=== PATIENT | male | born 1955 | race Caucasian/White ===

== ENCOUNTER 2016-08-05 05:56 | Day surgery (SDC) | payer BC ==
[2016-08-03 16:56] VITALS: BMI 28.1
[2016-08-05] MEDS ORDERED: SODIUM CHLORIDE 0.9% 1,000 ML IV SCH (06:05)
[2016-08-05 06:14] VITALS: TEMP 97.7
[2016-08-05 06:31] LABS: Basophils # (A) 0.1 k/uL (0-0.2); Basophils % (A) 1 %; CHCM 36.5; Eosinophils # (A) 0.3 k/uL (0-0.7); Eosinophils % (A) 4 %; HDW 2.96; HGB 14.7 gm/dL (13.0-17.5); Luc # (Auto) 0.11; Luc % (Auto) 2; Lymphocytes # (A) 1.6 k/uL (1.0-4.8); Lymphocytes % (A) 22 %; MCH 30.8 pg (25.0-35.0); MCV 87.9 fL (80.0-100.0); Mean Platelet Volume 7.2; Monocytes # (A) 0.5 k/uL (0-1.0); Monocytes % (A) 7 %; Neutrophils # (A) 4.7 k/uL (1.3-7.7); Neutrophils % (A) 65 %; RBC 4.78 m/uL (4.30-5.90); RDW 12.8 % (11.5-15.5); WBC 7.2 k/uL (3.8-10.6); WBC (Perox) 7.57
[2016-08-05 06:46] LABS: Anion Gap 12 mmol/L; Blood Urea Nitrogen 17 mg/dL (9-20); Carbon Dioxide 24 mmol/L (22-30); Chloride 107 mmol/L (98-107); Glucose 98 mg/dL (74-99); Non-African American GFR(MDRD) >60 (>60 ml/min/1.73 sqM); Potassium 4.4 mmol/L (3.5-5.1); Sodium 143 mmol/L (137-145)
[2016-08-05] MEDS ORDERED: SODIUM CHLORIDE 0.9% 500 ML IV ONE (07:11)
[2016-08-05] MEDS ORDERED: PROPOFOL 10 MG/ML 20 ML VIAL IV ONE (07:40)
[2016-08-05] MEDS ORDERED: LIDOCAINE 1% INJ 10MG/ML (20 ML MDV) ONE (07:40)
--- NOTE | 2016-08-05 08:34 | P.PCN ---
Preoperative Diagnosis: Procedure Electrical cardioversion for atrial fibrillation, on flecainide 100 mg twice daily Indication for procedure Persistent atrial fibrillation with RVR despite rate control medications Tachycardia mediated cardiomyopathy Procedure Successful electrical cardioversion, 360 J biphasic shock 12-lead ECG postprocedure Sinus rhythm normal MT narrow QRS normal ST segments Plan Discharge home on anticoagulation and flecainide Follow-up we'll monitor and 2-D echo in 3 weeks Follow-up with Dr. Campbell in 4-5 weeks Disposition: same day
--- NOTE | 2016-08-05 08:59 | LTR ---
August 05, 2016 RE: Mk Hernández Dear Williams: I had the pleasure of seeing Mk Mcclellan at electrophysiology followup. As you know, Mk has persistent atrial fibrillation and tachycardia mediated cardiomyopathy. He underwent successful electrical cardioversion and now is in sinus rhythm. Hopefully, this will result in improvement in his LV function and I will send you a followup note regarding this in about a month. Thank you for entrusting me with the care of your patient. Warm regards. Sincerely, KETURAH WILSON MD
[2016-08-05 10:40] VITALS: BP 120/74; PULSE 65; RESP 20
== END 2016-08-05 10:25 | disposition home or self-care (01) ==
LOC: CATHEP 05:56
PROVIDERS: ATTEND Internal Medicine Clinical Cardiac Electrophysiology
DX: I48.1 Persistent atrial fibrillation (principal); I42.9 Cardiomyopathy, unspecified; R00.0 Tachycardia, unspecified; I10 Essential (primary) hypertension; E78.5 Hyperlipidemia, unspecified; Z79.82 Long term (current) use of aspirin; Z79.899 Other long term (current) drug therapy; Z87.891 Personal history of nicotine dependence
CPT/HCPCS: 93005; 92960; 80048; 85025; J2001; J2704; 99152

== ENCOUNTER 2016-09-27 09:35 | Inpatient (IN) | payer BC ==
[2016-09-27 10:30] LABS: Glucose,Whole Blood 86 mg/dL (75-99)
[2016-09-27 10:40] VITALS: BMI 30.7
[2016-09-27] MEDS ORDERED: MAGNESIUM SULFATE-D5W PMX 1 GM in DEXTROSE/WATER 1 100ML.BAG IVPB ONE (11:00)
[2016-09-27 11:29] LABS: Anion Gap 11 mmol/L; Blood Urea Nitrogen 14 mg/dL (9-20); Calcium 8.8 mg/dL (8.4-10.2); Carbon Dioxide 25 mmol/L (22-30); Chloride 107 mmol/L (98-107); Glucose 90 mg/dL (74-99); Non-African American GFR(MDRD) >60 (>60 ml/min/1.73 sqM); Potassium 4.8 mmol/L (3.5-5.1); Sodium 143 mmol/L (137-145)
[2016-09-27] MEDS: LOSARTAN 50 MG TAB PO SCH (13:07)
[2016-09-27] MEDS: MAGNESIUM OXIDE 400 MG TAB PO SCH (13:07)
[2016-09-27] MEDS: SPIRONOLACTONE 25 MG TAB PO SCH (13:08)
--- NOTE | 2016-09-27 16:06 | P.PN ---
Subjective Principal diagnosis: atrial fibrillation Patient was admitted for evaluation and management of atrial fibrillation. He has sustained atrial fibrillation and failed electrical cardioversion on flecainide rate his heart rates of poorly controlled on beta blockers, Toprol- XL 100 mg by mouth daily At this time he has no chest discomfort or undue shortness of breath No dizziness lightheadedness and he is lying comfortably in bed Review of systems: No fever chills or rigors, no cough, phlegm or expectoration , no nausea, vomiting or diarrhea, no hematuria, dysuria, no musculoskeletal complaints, no strokes or seizures, no skin lesions. On examination His blood pressure is elevated at 144/91 mmHg Heart rates are in the 70s at rest No JVD no thyromegaly No carotid bruits Heart sounds are irregular No murmurs no gallops Breath sounds are normal no rhonchi no crackles Heart sounds are normal normal S1 normal S2, no murmurs Abdomen is soft nontender no masses Extremities are warm no edema Impression persistent atrial fibrillation with RVR despite rate control medications and failed electrical cardioversion on flecainide Intermittent aberrant conduction Mild cardiomyopathy, nonischemic, likely tachycardia mediated, related to atrial fibrillation Symptoms of tiredness and fatigue and shortness of breath on exertion Hypertension Dyslipidemia Twelve-lead ECG at baseline shows atrial fibrillation, rate controlled, absolute QT interval of less than 400 ms Plan Initiate dofetilide at 500 g dose Labs were reviewed TSH 2.4 , magnesium 1.9, creatinine 0.86, potassium 4.8 Creatinine clearance 114 Baseline 12-lead ECG shows absolute QT interval of less than 400 ms. Patient is in atrial fibrillation Continue ELIQUIS 5 mg twice daily Metoprolol succinate 150 mg daily at bedtime And losartan 50 mg by mouth daily and spironolactone 25 mg by mouth daily and oral magnesium Continue statins, atorvastatin 10 mg a day Follow dofetilide initiation protocol as an inpatient Monitor QT interval Monitor electrolytes and renal function Likely cardioversion after 4 doses of dofetilide Objective - Vital Signs Vital signs: Vital Signs Temp 98.4 F 09/27/16 10:30 Pulse 75 09/27/16 14:00 Resp 17 09/27/16 14:00 BP 144/91 09/27/16 14:00 Pulse Ox 98 09/27/16 10:30 Intake & Output 09/26/16 09/27/16 09/27/16 18:59 06:59 18:59 Output Total 0 Balance 0 Weight 111.7 kg Output: Urine 0 Other: Voiding Method Urinal - Labs CBC & Chem 7: 09/27/16 10:58
[2016-09-27] MEDS ORDERED: DOFETILIDE 500 MCG CAP PO ONE (18:00)
[2016-09-27] MEDS: METOPROLOL SUCCINATE (ER) 100 MG TAB.ER.24H PO SCH (20:35)
[2016-09-27] MEDS: APIXABAN 5 MG TAB PO SCH (20:36)
[2016-09-28 05:15] LABS: Anion Gap 9 mmol/L; Blood Urea Nitrogen 15 mg/dL (9-20); Calcium 8.7 mg/dL (8.4-10.2); Carbon Dioxide 25 mmol/L (22-30); Chloride 104 mmol/L (98-107); Glucose 90 mg/dL (74-99); Magnesium 1.9 mg/dL (1.6-2.3); Non-African American GFR(MDRD) >60 (>60 ml/min/1.73 sqM); Potassium 4.2 mmol/L (3.5-5.1); Sodium 138 mmol/L (137-145)
[2016-09-28] MEDS ORDERED: DOFETILIDE 500 MCG CAP PO ONE ×2 (06:00→18:00)
[2016-09-28] MEDS: ATORVASTATIN 10 MG TAB PO SCH (08:17)
[2016-09-28] MEDS: APIXABAN 5 MG TAB PO SCH ×2 (08:17→20:01)
[2016-09-28] MEDS: MAGNESIUM OXIDE 400 MG TAB PO SCH (08:18)
[2016-09-28] MEDS: SPIRONOLACTONE 25 MG TAB PO SCH (08:18)
[2016-09-28] MEDS: LOSARTAN 50 MG TAB PO SCH (08:18)
[2016-09-28] MEDS ORDERED: METOPROLOL SUCCINATE (ER) 100 MG TAB.ER.24H PO SCH (09:00)
[2016-09-28] MEDS: MAGNESIUM SULFATE-D5W PMX 1 GM in DEXTROSE/WATER 1 100ML.BAG IVPB SCH ×2 (12:22→14:51)
--- NOTE | 2016-09-28 14:20 | P.CONS ---
History of Present Illness - Reason for Consult Consult date: 09/28/16 Medical management - History of Present Illness This is a 61-year-old male patient of with a past medical history of chronic atrial fibrillation on Toprol-XL and eliquis, hyperlipidemia, hypertension, bowel resection due to large benign colon polyp, nephrolithiasis, peptic ulcer disease. Patient gives history that he was diagnosed with atrial fibrillation on April,, as he was having symptoms of dizziness and fluttering heart. Dr. Singer did an EKG and he was sent to Dr. Chamberlain. In July he underwent electrocardioversion and he converted but he was back into atrial fibrillation in 3 days postprocedure according to the patient. Patient has been admitted under the care of Dr. Chamberlain due to chronic atrial fibrillation that is failed electrical cardioversion on flecainide. Heart rate has been poorly controlled on beta blockers. Patient has been started on dofetilide and continued on metoprolol at 150 mg at bedtime and eliquis. TSH 2.350, GFR greater than 60, electrolytes within normal limits. Patient denies having any dizziness, chest pain shortness of breath or fluttering feeling. Review of Systems All systems: negative Constitutional: Denies chills, Denies fever Eyes: denies blurred vision, denies pain Ears, nose, mouth and throat: Denies headache, Denies sore throat Cardiovascular: Denies chest pain, Denies shortness of breath Respiratory: Denies cough Gastrointestinal: Denies abdominal pain, Denies diarrhea, Denies nausea, Denies vomiting Musculoskeletal: Denies myalgias Integumentary: Denies pruritus, Denies rash Neurological: Denies numbness, Denies weakness Psychiatric: Denies anxiety, Denies depression Endocrine: Denies fatigue, Denies weight change Past Medical History Past Medical History: Atrial Fibrillation, Hyperlipidemia, Hypertension Additional Past Medical History / Comment(s): Large benign colon polyp with bowel resection, nephrolithiasis, stomach ulcer yrs ago. History of Any Multi-Drug Resistant Organisms: None Reported Past Surgical History: Bowel Resection, Cholecystectomy, Hernia Repair, Orthopedic Surgery Additional Past Surgical History / Comment(s): 08/05/16 CVN, low anterior resection due to large benign polyp, rt knee arthroscopy, repair hiatal hernia and bilateral inguinal hernias, benign tumor removed from left breast, rt inner ear surgery, colonoscopy. Past Anesthesia/Blood Transfusion Reactions: No Reported Reaction Past Psychological History: No Psychological Hx Reported Additional Psychological History / Comment(s): Pt resides with his spouse. He is independent. Smoking Status: Former smoker Past Alcohol Use History: None Reported Additional Past Alcohol Use History / Comment(s): Patient was a smoker of up to 2 packs per day for 30 years and quit 18 years ago. He does have history of alcohol abuse and has been clean for 7 years. He uses marijuana occasionally. Past Drug Use History: Marijuana Additional Drug Use History / Comment(s): Occasionally smokes marijuana - Past Family History Brother(s) Family Medical History: Cancer Additional Family Medical History / Comment(s): Patient has 4 brothers. One has from leukemia, one as an infant from SIDS. One brother that is alive his colon cancer. Patient does not have any sisters. Father Family Medical History: Dementia Additional Family Medical History / Comment(s): Father is 87 yrs old history of hypertension and ear problems. Mother Additional Family Medical History / Comment(s): Mother is 85 yrs old. She has had a fractured hip and "throat problem." Daughter(s) Additional Family Medical History / Comment(s): Patient has 2 daughters and 1 son with no major medical problems. Medications and Allergies Home Medications Medication Instructions Recorded Confirmed Type Atorvastatin [Lipitor] 10 mg PO DAILY 11/04/15 09/27/16 History Apixaban [Eliquis] 5 mg PO BID 07/14/16 09/27/16 History Metoprolol Succinate (ER) [Toprol 150 mg PO DAILY 07/14/16 09/27/16 History Xl] Allergies Allergy/AdvReac Type Severity Reaction Status Date / Time No Known Allergies Allergy Verified 09/27/16 14:07 Physical Exam Vitals: Vital Signs Temp Pulse Pulse Resp BP BP Pulse Ox 09/28/16 08:15 97 F L 80 16 134/85 96 09/28/16 08:00 80 16 09/28/16 06:00 95 17 177/97 97 09/28/16 04:00 84 15 143/83 09/28/16 03:30 17 09/28/16 02:00 87 14 155/94 09/28/16 00:00 98.4 F 86 17 157/89 98 09/27/16 22:00 89 12 140/87 09/27/16 20:00 98.4 F 86 18 141/88 98 09/27/16 18:00 73 10 L 149/95 09/27/16 16:45 82 11 L 138/92 09/27/16 16:30 92 8 L 138/92 09/27/16 16:00 80 16 138/92 09/27/16 15:30 78 19 145/98 09/27/16 15:00 85 16 145/98 09/27/16 14:30 82 14 144/91 09/27/16 14:00 75 17 144/91 09/27/16 13:30 78 19 154/95 09/27/16 13:00 79 14 154/95 09/27/16 12:30 78 15 163/103 09/27/16 12:00 75 15 163/103 09/27/16 11:30 87 17 140/100 09/27/16 11:10 83 15 140/100 09/27/16 11:00 78 13 140/100 09/27/16 10:50 90 19 140/100 09/27/16 10:40 80 19 164/87 09/27/16 10:30 98.4 F 78 12 140/101 98 Intake and Output 09/27/16 09/28/16 09/28/16 22:59 06:59 14:59 Intake Total 240 480 180 Output Total 0 0 Balance 240 480 180 Intake: Oral 240 480 180 Output: Urine 0 0 Other: Voiding Method Urinal Urinal Urinal # Voids 2 4 Weight 111.7 kg 111.9 kg Gen: This is a 61-year-old male. He is sitting up in bed and appears to be in no acute distress. HEENT: Head is atraumatic, normocephalic. Pupils equal, round. Sclerae is anicteric. NECK: Supple. No JVD. No lymphadenopathy. No thyromegaly. LUNGS: Clear to auscultation. No wheezes or rhonchi. No intercostal retractions. HEART: Irregular rate and rhythm. No murmur. ABDOMEN: Soft. Bowel sounds are present. No masses. No tenderness. EXTREMITIES: No pedal edema. No calf tenderness. NEUROLOGICAL: Patient is awake, alert and oriented x3. Cranial nerves 2 through 12 are grossly intact. Results CBC & Chem 7: 09/28/16 04:21 Assessment and Plan Plan: 1. Persistent chronic atrial fibrillation with rapid ventricular response failed electrocardioversion on flecainide and high-dose beta terrell. Patient admitted to selective care unit and initiated on dofetilide by Dr. Chamberlain. Monitor electrolytes and kidney function and QT interval. Patient is continued on eliquis 5 mg twice daily and metoprolol succinate 150 mg at bedtime. 2. Nonischemic cardiomyopathy. Continue metoprolol and Aldactone. 3. Hypertension. Continue losartan 50 mg daily and metoprolol succinate 150 mg at bedtime, Aldactone 25 mg daily. 4. Hyperlipidemia. Continue Lipitor. 5. DVT prophylaxis. Continue eliquis. 6. Gastrointestinal prophylaxis. Protonix. Patient will be admitted to the hospital for a minimum of 3 night stay. Discharge plan: Return home Impression and plan of care have been directed as dictated by the signing physician. Alvina Blackwell nurse practitioner acting as scribe for signing physician. Time with Patient: Greater than 30
--- NOTE | 2016-09-28 16:21 | P.PN ---
Subjective Patient is doing well from a cardiac standpoint No chest discomfort or undue shortness of breath Lying comfortably in bed Heart rates are controlled at rest He remains in atrial fibrillation the Jeffrey carrion is organized on dofetilide 500 g and he has received 2 doses so far QT interval, absolute is about 400 ms, heart rate in the 80s Blood pressure is better today but repeat blood pressure in the morning was 177/ 97 and later on this afternoon the nurse found that his blood pressure was still elevated Impression Persistent atrial fibrillation with RVR Likely cardio myopathy related to atrial fibrillation with RVR Plan Dofetilide 500 g this evening at 6 PM with an ECG to follow 3 hours later Labs are reviewed magnesium 1.9, IV magnesium was given, potassium is normal renal function is stable Increase losartan to 100 mg by mouth daily Increase spironolactone 50 mg by mouth daily If he does not convert to sinus rhythm by I will cardiovert him electrically on Objective - Vital Signs Vital signs: Vital Signs Temp 97.6 F 09/28/16 12:00 Pulse 80 09/28/16 12:00 Resp 18 09/28/16 12:00 BP 130/66 09/28/16 12:00 Pulse Ox 98 09/28/16 12:00 Intake & Output 09/27/16 09/28/16 09/28/16 18:59 06:59 18:59 Intake Total 720 398 Output Total 0 0 1 Balance 0 720 397 Weight 111.7 kg 111.9 kg Intake: Oral 720 398 Output: Urine 0 0 1 Other: Voiding Method Urinal Urinal Urinal # Voids 1 4 - Labs CBC & Chem 7: 09/28/16 04:21
[2016-09-28] MEDS ORDERED: LOSARTAN 50 MG TAB PO STA (16:25)
[2016-09-28] MEDS: METOPROLOL SUCCINATE (ER) 100 MG TAB.ER.24H PO SCH (20:02)
[2016-09-29] MEDS ORDERED: DOFETILIDE 500 MCG CAP PO ONE (06:00)
[2016-09-29] MEDS: PANTOPRAZOLE 40 MG TABLET PO SCH (06:37)
[2016-09-29 07:01] LABS: Anion Gap 11 mmol/L; Blood Urea Nitrogen 14 mg/dL (9-20); Calcium 9.1 mg/dL (8.4-10.2); Carbon Dioxide 25 mmol/L (22-30); Chloride 104 mmol/L (98-107); Glucose 95 mg/dL (74-99); Non-African American GFR(MDRD) >60 (>60 ml/min/1.73 sqM); Potassium 4.5 mmol/L (3.5-5.1); Sodium 140 mmol/L (137-145)
[2016-09-29] MEDS ORDERED: SODIUM CHLORIDE 0.9% 1,000 ML IV SCH (08:00)
--- NOTE | 2016-09-29 08:14 | PN ---
Mr. Mcclellan is doing well. He is lying comfortably in bed. No chest discomfort. No dizziness, lightheadedness. He has no problems after initiating dofetelide 500 mcg. LABS: Reviewed. His sodium is 140, potassium 4.5. BUN 14, creatinine 0.86 and TSH is normal at 2.35. Magnesium 2.0. Yesterday. I increased his losartan and I increased the Aldactone. Today his blood pressure is 141/89 mmHg, pulse rate is in the 80s, temperature is normal. Respirations are normal. Head and neck examination is normal. Heart sounds S1, S2 are irregular but normal. No murmurs or gallops. LUNGS: Clear to auscultation. No rhonchi. No crackles. ABDOMEN: Soft, nontender. EXTREMITIES: Warm. No edema. 12 lead ECG from yesterday was reviewed and his absolute QT interval was just above 400 ms on dofetelide. His atrial fibrillation is now organized. PLAN: Review ECG today at 9:00 a.m. and decide regarding the dose in the evening. Tomorrow morning he will get his 6:00 a.m. dose of dofetelide and he will get cardioverted around 7:30 in the morning tomorrow. I have asked him to stay n.p.o. except for medications for the procedure and I have asked the nurse to keep him n.p.o. except meds too.
[2016-09-29] MEDS: APIXABAN 5 MG TAB PO SCH ×2 (11:14→20:57)
[2016-09-29] MEDS: ATORVASTATIN 10 MG TAB PO SCH (11:14)
[2016-09-29] MEDS: LOSARTAN 50 MG TAB PO SCH (11:15)
[2016-09-29] MEDS: MAGNESIUM OXIDE 400 MG TAB PO SCH (11:15)
[2016-09-29] MEDS: SPIRONOLACTONE 25 MG TAB PO SCH (11:19)
--- NOTE | 2016-09-29 12:38 | P.PN ---
Subjective This is a 61-year-old male patient of with a past medical history of chronic atrial fibrillation on Toprol-XL and eliquis, hyperlipidemia, hypertension, bowel resection due to large benign colon polyp, nephrolithiasis, peptic ulcer disease. Patient gives history that he was diagnosed with atrial fibrillation on April,, as he was having symptoms of dizziness and fluttering heart. Dr. Singer did an EKG and he was sent to Dr. Chamberlain. In July he underwent electrocardioversion and he converted but he was back into atrial fibrillation in 3 days postprocedure according to the patient. Patient has been admitted under the care of Dr. Chamberlain due to chronic atrial fibrillation that is failed electrical cardioversion on flecainide. Heart rate has been poorly controlled on beta blockers. Patient has been started on dofetilide and continued on metoprolol at 150 mg at bedtime and eliquis. TSH 2.350, GFR greater than 60, electrolytes within normal limits. Patient denies having any dizziness, chest pain shortness of breath or fluttering feeling. 09/29: patient remains in A fib and continued on same medications. He denies lightheadedness, dizziness, chest pain, shortness of breath. He is scheduled for electrocardioversion tomorrow. Objective - Vital Signs Vital signs: Vital Signs Temp 97.4 F L 09/29/16 04:00 Pulse 62 09/29/16 09:00 Resp 16 09/29/16 09:00 BP 141/89 09/29/16 04:00 Pulse Ox 99 09/29/16 04:00 Intake & Output 09/28/16 09/29/16 09/29/16 18:59 06:59 18:59 Intake Total 398 720 236 Output Total 1 900 Balance 397 -180 236 Weight 109.4 kg Intake: Oral 398 720 236 Output: Urine 1 900 Other: Voiding Method Urinal Urinal Urinal # Voids 1 1 - Exam Gen: This is a 61-year-old male. He is sitting up in bed and appears to be in no acute distress. HEENT: Head is atraumatic, normocephalic. Pupils equal, round. Sclerae is anicteric. NECK: Supple. No JVD. No lymphadenopathy. No thyromegaly. LUNGS: Clear to auscultation. No wheezes or rhonchi. No intercostal retractions. HEART: Irregular rate and rhythm. No murmur. ABDOMEN: Soft. Bowel sounds are present. No masses. No tenderness. EXTREMITIES: No pedal edema. No calf tenderness. NEUROLOGICAL: Patient is awake, alert and oriented x3. Cranial nerves 2 through 12 are grossly intact. - Labs CBC & Chem 7: 09/29/16 06:12 Assessment and Plan Plan: 1. Persistent chronic atrial fibrillation with rapid ventricular response failed electrocardioversion on flecainide and high-dose beta terrell. Patient admitted to selective care unit and initiated on dofetilide by Dr. Chamberlain. Monitor electrolytes and kidney function and QT interval. Patient is continued on eliquis 5 mg twice daily and metoprolol succinate 150 mg at bedtime. Electro cardioversion tomorrow. 2. Nonischemic cardiomyopathy. Continue metoprolol and Aldactone. 3. Hypertension. Continue losartan 50 mg daily and metoprolol succinate 150 mg at bedtime, Aldactone 25 mg daily. 4. Hyperlipidemia. Continue Lipitor. 5. DVT prophylaxis. Continue eliquis. 6. Gastrointestinal prophylaxis. Protonix. Discharge plan: Return home Impression and plan of care have been directed as dictated by the signing physician. Alvina Blackwell nurse practitioner acting as scribe for signing physician. Time with Patient: Greater than 30
[2016-09-29] MEDS ORDERED: DOFETILIDE 250 MCG CAP PO STA (14:16)
[2016-09-29] MEDS: METOPROLOL SUCCINATE (ER) 100 MG TAB.ER.24H PO SCH (20:55)
[2016-09-30 04:25] VITALS: RESP 18
[2016-09-30] MEDS ORDERED: DOFETILIDE 500 MCG CAP PO ONE ×2 (06:00→18:00)
[2016-09-30] MEDS: PANTOPRAZOLE 40 MG TABLET PO SCH (06:04)
[2016-09-30 07:01] LABS: Anion Gap 9 mmol/L; Blood Urea Nitrogen 17 mg/dL (9-20); Carbon Dioxide 26 mmol/L (22-30); Chloride 104 mmol/L (98-107); Glucose 91 mg/dL (74-99); Magnesium 1.9 mg/dL (1.6-2.3); Non-African American GFR(MDRD) >60 (>60 ml/min/1.73 sqM); Potassium 4.5 mmol/L (3.5-5.1); Sodium 139 mmol/L (137-145)
[2016-09-30] MEDS: ATORVASTATIN 10 MG TAB PO SCH (08:13)
[2016-09-30] MEDS: SPIRONOLACTONE 25 MG TAB PO SCH (08:13)
[2016-09-30] MEDS: LOSARTAN 50 MG TAB PO SCH (08:14)
[2016-09-30] MEDS: APIXABAN 5 MG TAB PO SCH ×2 (08:14→20:44)
[2016-09-30] MEDS: MAGNESIUM OXIDE 400 MG TAB PO SCH (08:14)
--- NOTE | 2016-09-30 10:41 | P.PN ---
Subjective This is a 61-year-old male patient of with a past medical history of chronic atrial fibrillation on Toprol-XL and eliquis, hyperlipidemia, hypertension, bowel resection due to large benign colon polyp, nephrolithiasis, peptic ulcer disease. Patient gives history that he was diagnosed with atrial fibrillation on April,, as he was having symptoms of dizziness and fluttering heart. Dr. Singer did an EKG and he was sent to Dr. Chamberlain. In July he underwent electrocardioversion and he converted but he was back into atrial fibrillation in 3 days postprocedure according to the patient. Patient has been admitted under the care of Dr. Chamberlain due to chronic atrial fibrillation that is failed electrical cardioversion on flecainide. Heart rate has been poorly controlled on beta blockers. Patient has been started on dofetilide and continued on metoprolol at 150 mg at bedtime and eliquis. TSH 2.350, GFR greater than 60, electrolytes within normal limits. Patient denies having any dizziness, chest pain shortness of breath or fluttering feeling. 09/29: patient remains in A fib and continued on same medications. He denies lightheadedness, dizziness, chest pain, shortness of breath. He is scheduled for electrocardioversion tomorrow. 09/30: Patient converted to SR yesterday. No need for electro-cardioversion. Patient denies any complaints. HR running in the 50s. Objective - Vital Signs Vital signs: Vital Signs Temp 97.4 F L 09/30/16 04:00 Pulse 58 L 09/30/16 08:00 Resp 18 09/30/16 08:00 BP 122/81 09/30/16 08:00 Pulse Ox 97 09/30/16 08:00 Intake & Output 09/29/16 09/30/16 09/30/16 18:59 06:59 18:59 Intake Total 2476 350 50 Balance 2476 350 50 Weight 109.9 kg Intake: Oral 2476 350 50 Other: Voiding Method Urinal Toilet Urinal # Voids 4 1 - Exam Gen: This is a 61-year-old male. He is sitting up in bed and appears to be in no acute distress. HEENT: Head is atraumatic, normocephalic. Pupils equal, round. Sclerae is anicteric. NECK: Supple. No JVD. No lymphadenopathy. No thyromegaly. LUNGS: Clear to auscultation. No wheezes or rhonchi. No intercostal retractions. HEART: Irregular rate and rhythm. No murmur. ABDOMEN: Soft. Bowel sounds are present. No masses. No tenderness. EXTREMITIES: No pedal edema. No calf tenderness. NEUROLOGICAL: Patient is awake, alert and oriented x3. Cranial nerves 2 through 12 are grossly intact. - Labs CBC & Chem 7: 09/30/16 05:57 Assessment and Plan Plan: 1. Persistent chronic atrial fibrillation with rapid ventricular response failed electrocardioversion on flecainide and high-dose beta terrell. Patient admitted to selective care unit and initiated on dofetilide by Dr. Chamberlain. Monitor electrolytes and kidney function and QT interval. Patient is continued on eliquis 5 mg twice daily and metoprolol succinate 150 mg at bedtime. Patient converted to sinus rthym. 2. Nonischemic cardiomyopathy. Continue metoprolol and Aldactone. 3. Hypertension. Continue losartan 50 mg daily and metoprolol succinate 150 mg at bedtime, Aldactone 25 mg daily. 4. Hyperlipidemia. Continue Lipitor. 5. DVT prophylaxis. Continue eliquis. 6. Gastrointestinal prophylaxis. Protonix. Discharge plan: Return home Impression and plan of care have been directed as dictated by the signing physician. Alvina Blackwell nurse practitioner acting as scribe for signing physician. Time with Patient: Greater than 30
--- NOTE | 2016-09-30 17:46 | P.PN ---
Subjective Principal diagnosis: Dofetilide instructions 1. I'm prescribing dofetilide 500 g (micrograms) to be taken twice daily 2. Take the pill between 7 AM and 10 AM in the morning and then at 7 PM-10 PM in the evening 3. If you forget to take it it is better to miss the dose 4. Do not take extra doses of dofetilide. A maximum of 2 doses only per day 5. Preferably get all his medications from one pharmacy and if you have 2 pharmacies in both pharmacies must no purulent dofetilide as well as all the other medications that you're on so that the pharmacist can check for drug interactions 6. There are certain medications that cannot be taken while on dofetilide. The best way to deal with this is always remind the physician (who is prescribing the new medication) that you are on dofetilide 7. Thereafter he was checked with the pharmacist also if it is safe to take the new prescription along with dofetilide 8. Usual [id number] medications such as Tylenol, Motrin, Mylanta and decongestants are fine and did not have any interactions with dofetilide 9. Dofetilide should not be taken if you have abnormal kidneys. YOUR Kidney function normal 10. If you have severe watery diarrhea very frequently, stopped taking dofetilide and call Dr. Campbell 11. If he needs any medications that interacts with dofetilide, stop dofetilide and take that medication; prior to restarting dofetilide you should come back to the hospital and get admitted for one to 2 days, not 5 days. 12. If you go to any urgent care for any Hospital emergency room for any physicians YOU must tell them that urine dofetilide so that they can check for interactions. It is a good idea for you to get a dofetilide bracelet made. Objective - Vital Signs Vital signs: Vital Signs Temp 97.7 F 09/30/16 15:46 Pulse 60 09/30/16 16:21 Resp 18 09/30/16 16:21 BP 128/78 09/30/16 15:46 Pulse Ox 97 09/30/16 15:46 Intake & Output 09/29/16 09/30/16 09/30/16 18:59 06:59 18:59 Intake Total 2476 350 50 Balance 2476 350 50 Weight 109.9 kg Intake: Oral 1873 350 50 Other: Voiding Method Urinal Toilet Toilet Urinal Urinal # Voids 4 1 - Labs CBC & Chem 7: 09/30/16 05:57
--- NOTE | 2016-09-30 17:55 | P.PN ---
Subjective Principal diagnosis: atrial fib Patient is doing well. He is lying comfortably in bed. He is converted to sinus rhythm chemically with 500 g twice daily of dofetilide and therefore did not require electrical cardioversion today. This happened after the fifth dose of dofetilide His blood pressure is now better controlled on losartan 100 mg daily and spironolactone 50 mrem daily. He also takes Toprol-XL 150 mrem today He denies any chest discomfort or undue shortness of breath no dizziness lightheadedness or palpitations Is afebrile 97.7F, pulse rate in the 60s, respirations are normal and blood pressure 128/78 mmHg heart sounds S1 and S2 are normal Breath sounds are normal no rhonchi no crackles Extremities are warm no edema Labs are reviewed, electrolytes are normal potassium is normal magnesium is normal Twelve-lead ECG shows sinus rhythm normal PA narrow QRS and QT interval 440 ms Impression Persistent symptomatic atrial fibrillation with RVR despite 150 mg of Toprol-XL Atrial fibrillation related cardiomyopathy Hypertension Chemical conversion to sinus rhythm with 500 g twice daily of dofetilide within 5 doses Plan Continue current medications including losartan 100 mg daily, spironolactone 50 mg daily, Slow-Mag 400 mg daily, Toprol-XL 150 milligrams once daily, ELIQUIS and atorvastatin Full dofetilide education given to patient Written instructions provided also in addition to verbal instructions If his QT interval is normal then we will go home tomorrow Objective - Vital Signs Vital signs: Vital Signs Temp 97.7 F 09/30/16 15:46 Pulse 60 09/30/16 16:21 Resp 18 09/30/16 16:21 BP 128/78 09/30/16 15:46 Pulse Ox 97 09/30/16 15:46 Intake & Output 09/29/16 09/30/16 09/30/16 18:59 06:59 18:59 Intake Total 2476 350 50 Balance 2476 350 50 Weight 109.9 kg Intake: Oral 2476 350 50 Other: Voiding Method Urinal Toilet Toilet Urinal Urinal # Voids 4 1 - Labs CBC & Chem 7: 09/30/16 05:57
[2016-09-30] MEDS: METOPROLOL SUCCINATE (ER) 100 MG TAB.ER.24H PO SCH (20:44)
[2016-10-01 05:33] VITALS: PULSE 98; TEMP 97
[2016-10-01] MEDS ORDERED: DOFETILIDE 500 MCG CAP PO ONE (06:00)
[2016-10-01] MEDS: PANTOPRAZOLE 40 MG TABLET PO SCH (06:02)
--- NOTE | 2016-10-01 08:11 | P.PN ---
Subjective Patient is doing well. He denies any chest discomfort or undue shortness of breath no dizziness or lightheadedness And neck examination is normal Heart sounds are normal no murmurs or gallops Abdomen soft nontender Extremities warm no edema No chest discomfort no dizziness lightheadedness palpitations or any symptoms. Impression History of cardio myopathy History of persistent symptomatic atrial fibrillation Inpatient dofetilide initiation, normal electrolytes, normal renal function with normal creatinine clearance of 114 Chemical conversion to sinus rhythm after the fifth dose of dofetilide Stable QT interval of about 440-480 ms on dofetilide 500 g twice daily Plan Patient may go home today He will continue ELIQUIS, atorvastatin and Toprol-XL 150 mrem daily I have added losartan 100 mg in the morning along with spironolactone 50 mg and magnesium oxide We will see him again in about 2-3 weeks. A 24-hour Holter monitor will be ordered LV function will be reassessed in about 12 weeks If he has recurrent episodes of atrial tachycardia or atrial fibrillation I will recommend in A. fib ablation Objective - Vital Signs Vital signs: Vital Signs Temp 97.0 F L 10/01/16 04:00 Pulse 98 10/01/16 04:00 Resp 18 10/01/16 04:00 BP 124/81 10/01/16 04:00 Pulse Ox 98 10/01/16 04:00 Intake & Output 09/30/16 10/01/16 10/01/16 18:59 06:59 18:59 Intake Total 100 Output Total 250 Balance 100 -250 Weight 108.8 kg Intake: Oral 100 Output: Urine 250 Other: Voiding Method Toilet Toilet Urinal Urinal # Voids 1 1 - Labs CBC & Chem 7: 09/30/16 05:57
[2016-10-01] MEDS: LOSARTAN 50 MG TAB PO SCH (08:14)
[2016-10-01] MEDS: SPIRONOLACTONE 25 MG TAB PO SCH (08:14)
[2016-10-01] MEDS: ATORVASTATIN 10 MG TAB PO SCH (08:14)
[2016-10-01] MEDS: APIXABAN 5 MG TAB PO SCH (08:14)
[2016-10-01] MEDS: MAGNESIUM OXIDE 400 MG TAB PO SCH (08:15)
--- NOTE | 2016-10-01 08:15 | P.DS ---
Providers Date of admission: 09/27/16 09:59 Attending physician: Zafar Chamberlain Consults: 09/27/16 16:06 Consult Physician Routine Consulting Provider: Norris Varma Consult Reason/Comments: dyslipidemia Do you want consulting provider notified?: Yes Primary care physician: Stated None Hospital Course: Patient is doing well. He denies any chest discomfort or undue shortness of breath no dizziness or lightheadedness And neck examination is normal Heart sounds are normal no murmurs or gallops Abdomen soft nontender Extremities warm no edema No chest discomfort no dizziness lightheadedness palpitations or any symptoms. Impression History of cardio myopathy History of persistent symptomatic atrial fibrillation Inpatient dofetilide initiation, normal electrolytes, normal renal function with normal creatinine clearance of 114 Chemical conversion to sinus rhythm after the fifth dose of dofetilide Stable QT interval of about 440-480 ms on dofetilide 500 g twice daily Plan Patient may go home today He will continue ELIQUIS, atorvastatin and Toprol-XL 150 mrem daily I have added losartan 100 mg in the morning along with spironolactone 50 mg and magnesium oxide We will see him again in about 2-3 weeks. A 24-hour Holter monitor will be ordered LV function will be reassessed in about 12 weeks If he has recurrent episodes of atrial tachycardia or atrial fibrillation I will recommend in A. fib ablation Plan - Discharge Summary New Discharge Prescriptions: Losartan [Cozaar] 100 mg PO DAILY #90 tab Magnesium Oxide [Mag-Ox] 400 mg PO DAILY #90 tablet Spironolactone 50 mg PO DAILY #90 tab Discharge Medication List Atorvastatin [Lipitor] 10 mg PO DAILY 11/04/15 [History] Apixaban [Eliquis] 5 mg PO BID 07/14/16 [History] Metoprolol Succinate (ER) [Toprol Xl] 150 mg PO DAILY 07/14/16 [History] Losartan [Cozaar] 100 mg PO DAILY #90 tab 10/01/16 [Rx] Magnesium Oxide [Mag-Ox] 400 mg PO DAILY #90 tablet 10/01/16 [Rx] Spironolactone 50 mg PO DAILY #90 tab 10/01/16 [Rx] Follow up Appointment(s)/Referral(s): Williams Singer MD [STAFF PHYSICIAN] - 1 Week Activity/Diet/Wound Care/Special Instructions: Discharge home Follow up with Dr. Campbell in 2-3 weeks I will arrange the follow-up myself Discharge Disposition: HOME SELF-CARE
[2016-10-01 08:44] VITALS: BP 141/76
[2016-10-07] MEDS ORDERED: DOFETILIDE 500 MCG CAP PO ONE (18:00)
== END 2016-10-01 10:16 | disposition home or self-care (01) | DRG 310 ==
LOC: 6ICU 09:59 → 6SEL 09-28 06:41
PROVIDERS: ADMIT Internal Medicine Clinical Cardiac Electrophysiology; ATTEND Internal Medicine Clinical Cardiac Electrophysiology
DX: I48.1 Persistent atrial fibrillation (principal); I42.9 Cardiomyopathy, unspecified; I10 Essential (primary) hypertension; E78.5 Hyperlipidemia, unspecified; F12.90 Cannabis use, unspecified, uncomplicated; Z87.891 Personal history of nicotine dependence; Z86.010 Personal history of colon polyps; Z90.49 Acquired absence of other specified parts of digestive tract; Z87.442 Personal history of urinary calculi; Z87.11 Personal history of peptic ulcer disease; Z79.01 Long term (current) use of anticoagulants; Z79.899 Other long term (current) drug therapy; Z82.49 Family history of ischemic heart disease and other diseases of the circulatory system
CPT/HCPCS: 80048; 83735; 84443

== ENCOUNTER → 2017-01-10 | Outpatient (CLI) | payer BC ==
[2017-01-10 09:32] LABS: Anion Gap 12 mmol/L; Blood Urea Nitrogen 23 mg/dL (9-20); Calcium 8.8 mg/dL (8.4-10.2); Carbon Dioxide 22 mmol/L (22-30); Chloride 107 mmol/L (98-107); Glucose 102 mg/dL (74-99); Non-African American GFR(MDRD) >60 (>60 ml/min/1.73 sqM); Potassium 4.3 mmol/L (3.5-5.1); Sodium 141 mmol/L (137-145)
== END | disposition home or self-care (01) ==
LOC: LABWHC1 08:27
PROVIDERS: ATTEND Internal Medicine Clinical Cardiac Electrophysiology
DX: I48.91 Unspecified atrial fibrillation (principal); I42.9 Cardiomyopathy, unspecified
CPT/HCPCS: 36415; 80048; 83735

== ENCOUNTER → 2017-02-18 | Day surgery (SDC) | payer BC ==
[2017-02-14 12:10] VITALS: BMI 29.3
[~2017-02-18] MED LIST: ALPRAZolam 0.25 MG TAB PO PRN; ALPRAZolam 0.5 MG TAB PO PRN; ASPIRIN 325 MG TAB PO STA; ATORVASTATIN 80 MG TAB PO STA; IOHEXOL 350 MG/ML 125ML BOTTLE INJ ONE; LIDOCAINE 2% INJ 20 MG/ML SQ ONE; MIDAZOLAM 2 MG/2 ML VIAL IV ONE; MIDAZOLAM 2 MG/2 ML VIAL ONE; NITROGLYCERIN SL TABS 0.4 MG TAB SUBLINGUAL PRN; RX INFO: IV CONTRAST WAS GIVEN 1 EACH MISC MISCELLANE PRN; SODIUM CHLORIDE 0.9% 1,000 ML IV SCH; SODIUM CHLORIDE 0.9% 1,000 ML in EMPTY BAG 1 BAG IV ONE; fentaNYL (PF) 50 MCG/ML 2 ML AMP IV ONE; fentaNYL (PF) 50 MCG/ML 2 ML AMP ONE
[2017-02-18 08:42] VITALS: RESP 20; TEMP 98
[2017-02-18 08:58] LABS: Basophils % (A) 1 %; CH 32.6; CHCM 36.3; Eosinophils # (A) 0.2 k/uL (0-0.7); Eosinophils % (A) 3 %; HCT 39.8 % (39.0-53.0); HDW 2.83; HGB 13.9 gm/dL (13.0-17.5); Luc # (Auto) 0.11; Luc % (Auto) 2; Lymphocytes # (A) 1.3 k/uL (1.0-4.8); Lymphocytes % (A) 20 %; MCH 31.5 pg (25.0-35.0); MCHC 34.9 g/dL (31.0-37.0); MCV 90.3 fL (80.0-100.0); Mean Platelet Volume 8.2; Monocytes # (A) 0.4 k/uL (0-1.0); Monocytes % (A) 6 %; Neutrophils # (A) 4.7 k/uL (1.3-7.7); Neutrophils % (A) 70 %; RBC 4.41 m/uL (4.30-5.90); RDW 13.4 % (11.5-15.5); WBC 6.7 k/uL (3.8-10.6); WBC (Perox) 6.84
[2017-02-18 09:12] LABS: Anion Gap 10 mmol/L; Blood Urea Nitrogen 20 mg/dL (9-20); Calcium 9.2 mg/dL (8.4-10.2); Carbon Dioxide 25 mmol/L (22-30); Chloride 106 mmol/L (98-107); Glucose 100 mg/dL (74-99); Non-African American GFR(MDRD) >60 (>60 ml/min/1.73 sqM); Potassium 4.6 mmol/L (3.5-5.1); Sodium 141 mmol/L (137-145)
--- NOTE | 2017-02-18 09:57 | P.PCN ---
Date of Procedure: 02/18/17 Preoperative Diagnosis: Cardiomyopathy chest pains eklutna fibrillation Postoperative Diagnosis: The same Procedure(s) Performed: Left heart catheterization with left ventriculography Implants: Indications for Procedure: Operative Findings: Description of Procedure: HISTORY: This is a 61-year-old gentleman with history of of persistent/ paroxysmal atrial fibrillation being treated with flecainide and also dofetilide. Patient has cardiomyopathy and recurrent chest pains. A cardiac catheterization requested to rule out any coronary artery disease. CONSENT: Dr. Chamberlain has discussed the risks, benefits and alternative therapies for the above-mentioned procedure and for both sedation/analgesia as well as necessary blood product administration, if indicated, as they pertain to this patient. The patient has indicated understanding and acceptance of risks and procedures discussed. PROCEDURE: Patient was brought to the lab in a fasting state. Patient was given some IV sedation. The right groin is infiltrated with lidocaine and right femoral artery was entered using Seldinger technique. A 6-Indonesian catheter was left in place and selective coronary arteriography and left ventriculography was performed. Patient tolerated the procedure well. Femoral angiogram was performed and Angio-Seal was applied for hemostasis. No immediate complications were noted and patient was transferred to [facility] in a stable condition Conscious Sedation: Versed 1 mg Fentanyl : 50 g Duration : 17 minutes HEMODYNAMICS: The aortic pressure is 130/70. Left ankle end-diastolic pressure 8-12. There was no gradient across aortic valve SELECTIVE CORONARY ARTERIOGRAPHY: LEFT MAIN: Normal length and patent THE LEFT ANTERIOR DESCENDING CORONARY ARTERY: . Good caliber vessel giving rise to several small diagonal and septal branches. The LAD and its branches are free of any significant occlusive disease THE LEFT CIRCUMFLEX AND IS CORONARY ARTERY: . This is a small to moderate caliber vessel giving rise to good-sized OM branch. The OM branch is about 30-40% stenosis. The rest of the vessel is free of occlusive disease. This is a nondominant vessel THE RIGHT CORONARY ARTERY: . This a dominant vessel giving rise to good-sized PDA and PLV branches. The RCA and branch are free of any significant occlusive disease LEFT VENTRICULOGRAPHY: . This was performed 30 right and probably projection which revealed normal-sized cardiac silhouette with good systolic function. FINAL IMPRESSION: Mild coronary artery disease in circumflex. Otherwise normal coronary arteries PLAN: Maximum medical therapy and risk factor modification PROGNOSIS: Fair
[2017-02-18 15:24] VITALS: BP 120/69; PULSE 56
== END | disposition home or self-care (01) ==
LOC: CATHCVL 07:59
PROVIDERS: ATTEND Internal Medicine Cardiovascular Disease
DX: I25.118 Atherosclerotic heart disease of native coronary artery with other forms of angina pectoris (principal); I48.1 Persistent atrial fibrillation; Z79.01 Long term (current) use of anticoagulants; I42.0 Dilated cardiomyopathy; I10 Essential (primary) hypertension; Z87.891 Personal history of nicotine dependence; E78.5 Hyperlipidemia, unspecified; Z79.899 Other long term (current) drug therapy
CPT/HCPCS: 93458; 80048; 85025; 99152; C1760; C1894; C1769; J2001; J2250; J3010; Q9967

== ENCOUNTER → 2017-09-19 | Outpatient (CLI) | payer BC ==
--- NOTE | 2017-09-19 13:16 | CT ---
EXAMINATION TYPE: CT urogram wo/w con DATE OF EXAM: 09/19/2017 COMPARISON: Prior report dated 09/23/2000. Images were not available at the time of dictation. HISTORY: Calculus of kidney CT DLP: 3677 mGycm, Automated Exposure Control for Dose Reduction was Utilized. CONTRAST: CT scan of the abdomen and pelvis is performed with oral and without and with IV Contrast, patient in jected with 100 ml mL of Omnipaque 350. 3-D images of the collecting systems were obtained in [employer] workstation for review. FINDINGS: LUNG BASES: No significant abnormality is appreciated. There is partially visualized mild asymmetric right-sided retroareolar gynecomastia. Moderate hiatal hernia is also noted. Moderate coronary arter y calcifications are seen. Lungs are well aerated. LIVER/GB: Gallbladder is surgically absent. There is minimal intrahepatic biliary ductal dilatation a nd extra hepatic biliary ductal dilatation, likely related to the postcholecystectomy status. No foca l hepatic lesion is appreciated. PANCREAS: No significant abnormality is seen. SPLEEN: No splenomegaly. ADRENALS: No nodules or thickening. KIDNEYS: There are at least 9 calculi within the left superior pole and mid pole and an innumerable a mount of calculi within the lower pole. Calculi measure up to 1.1 cm in the upper pole, 9 mm in the m id pole, and 6 mm in the lower pole. There are at least 9 calculi within the right kidney measuring up to 9 mm in the upper pole, 6 mm in the mid pole, and 5 mm in the lower pole. There is no evidence of hydronephrosis or obstructive uropathy within either kidney. The kidneys enha nce and excrete symmetrically other than a fluid attenuated left upper pole 8 mm renal cyst. No signi ficant perinephric fat stranding or perinephric fluid collection. The ureters are unremarkable withou t uroepithelial thickening or focal stricturing. Right ureter is noted to be nonenhanced distally sec ondary to peristalsis. Urinary bladder is not contrast filled and incompletely evaluated. BOWEL: Bowel is nondilated with no evidence of obstruction. PROSTATE/SEMINAL VESICLES: Prostate gland is heterogenous containing central zone calcifications. LYMPH NODES: No greater than 1cm abdominal or pelvic lymph nodes are appreciated. OSSEOUS STRUCTURES: No significant abnormality is seen. OTHER: There is ectasia of the infrarenal abdominal aorta measuring up to 2.7 x 2.8 cm. Moderate calc ific atheromatous plaquing is seen of the abdominal aorta and its branches. IMPRESSION: 1. Numerous nonobstructing bilateral renal calculi measuring up to 1.1 cm on the left and 9 mm on the right. No obstructive uropathy. Urinary bladder does not fill with contrast and is incompletely eval uated. 2. Subcentimeter simple left renal cysts. 3. Ectasia of the infrarenal abdominal aorta measuring 2.7 x 2.8 cm. 4. Moderate hiatal hernia.
== END | disposition home or self-care (01) ==
LOC: RADCTMAIN 10:20
PROVIDERS: ATTEND Urology
DX: N20.0 Calculus of kidney (principal); N28.1 Cyst of kidney, acquired; K44.9 Diaphragmatic hernia without obstruction or gangrene; I77.811 Abdominal aortic ectasia
CPT/HCPCS: 74178; 74400; Q9967

== ENCOUNTER 2017-12-14 08:58 | Day surgery (SDC) | payer BC ==
[2017-12-06 09:55] VITALS: BMI 31.2
[~2017-12-14 08:58] MED LIST changes: -ALPRAZolam 0.25 MG TAB PO PRN; -ALPRAZolam 0.5 MG TAB PO PRN; -ASPIRIN 325 MG TAB PO STA; -ATORVASTATIN 80 MG TAB PO STA; +HYDROmorphone 0.5 MG/0.5 ML SYRINGE IVP PRN; -IOHEXOL 350 MG/ML 125ML BOTTLE INJ ONE; -LIDOCAINE 2% INJ 20 MG/ML SQ ONE; -MIDAZOLAM 2 MG/2 ML VIAL IV ONE; -MIDAZOLAM 2 MG/2 ML VIAL ONE; +MORPHINE SULFATE 2 MG/ML SYRINGE IV PRN; -NITROGLYCERIN SL TABS 0.4 MG TAB SUBLINGUAL PRN; -RX INFO: IV CONTRAST WAS GIVEN 1 EACH MISC MISCELLANE PRN; -SODIUM CHLORIDE 0.9% 1,000 ML IV SCH; -SODIUM CHLORIDE 0.9% 1,000 ML in EMPTY BAG 1 BAG IV ONE; +ceFAZolin IN SWFI 2 GM/20 ML SYRINGE IVP ONE; -fentaNYL (PF) 50 MCG/ML 2 ML AMP IV ONE; -fentaNYL (PF) 50 MCG/ML 2 ML AMP ONE
[2017-12-14] MEDS: LACTATED RINGERS 1,000 ML IV SCH ×2 (09:35→21:40)
[2017-12-14 09:58] LABS: Anion Gap 13 mmol/L; Blood Urea Nitrogen 20 mg/dL (9-20); Calcium 8.1 mg/dL (8.4-10.2); Carbon Dioxide 19 mmol/L (22-30); Chloride 105 mmol/L (98-107); Glucose 83 mg/dL (74-99); Potassium 4.4 mmol/L (3.5-5.1); Sodium 137 mmol/L (137-145)
--- NOTE | 2017-12-14 09:58 | XR ---
EXAMINATION TYPE: XR KUB DATE OF EXAM: 12/14/2017 COMPARISON: NONE INDICATION: Left-sided renal stone TECHNIQUE: Single view abdomen FINDINGS: Nonspecific small bowel gas within the lower abdomen. Cholecystectomy clips are present. Multiple john cifications overlie the left kidney. The largest measures approximately 0.4 cm Psoas margins are normal. No organomegaly is present. Postsurgical changes within loops of bowel within the lower pelvis. IMPRESSION: 1. Multiple 0.4 cm left sided renal stones.
[2017-12-14] MEDS ORDERED: ONDANSETRON 4 MG/2 ML VIAL ONE (10:00)
[2017-12-14 10:23] LABS: Basophils % (A) 0 %; Eosinophils # (A) 0.2 k/uL (0-0.7); Eosinophils % (A) 2 %; HCT 36.7 % (39.0-53.0); HGB 12.9 gm/dL (13.0-17.5); Lymphocytes # (A) 0.7 k/uL (1.0-4.8); Lymphocytes % (A) 11 %; MCH 31.5 pg (25.0-35.0); MCHC 35.2 g/dL (31.0-37.0); MCV 89.5 fL (80.0-100.0); Mean Platelet Volume 7.8; Monocytes # (A) 0.6 k/uL (0-1.0); Monocytes % (A) 8 %; Neutrophils # (A) 5.2 k/uL (1.3-7.7); Neutrophils % (A) 77 %; Platelet Count 107 k/uL (150-450); RDW 12.7 % (11.5-15.5); WBC 6.7 k/uL (3.8-10.6)
[2017-12-14] MEDS ORDERED: PROPOFOL 10 MG/ML 20 ML VIAL IV ONE (10:33)
[2017-12-14] MEDS ORDERED: MIDAZOLAM 2 MG/2 ML VIAL ONE (10:33)
[2017-12-14] MEDS ORDERED: SUCCINYLCHOLINE CHLORIDE 100 MG/5 ML SYR IV ONE (10:33)
[2017-12-14] MEDS ORDERED: LIDOCAINE 1% INJ 10MG/ML (20 ML MDV) ONE (10:33)
[2017-12-14] MEDS ORDERED: GLYCOPYRROLATE 0.2 MG/ML 2 ML VIAL ONE (10:33)
[2017-12-14] MEDS ORDERED: ROCURONIUM BROMIDE 10 MG/ML 10 ML VIAL IV ONE (10:33)
[2017-12-14] MEDS ORDERED: fentaNYL (PF) 50 MCG/ML 2 ML AMP ONE (10:33)
[2017-12-14] MEDS ORDERED: ePHEDrine SULFATE/0.9% NACL/PF 50 MG/5 ML SYRINGE IV ONE (10:33)
[2017-12-14] MEDS ORDERED: NEOSTIGMINE 1 MG/ML 10 ML VIAL ONE (10:33)
[2017-12-14] MEDS ORDERED: IOHEXOL 350 MG/ML (PER ML) 100ML BTL INJ ONE (11:08)
[2017-12-14] MEDS ORDERED: LACTATED RINGERS 1,000 ML IV ONE ×2 (11:56→11:57)
[2017-12-14] MEDS ORDERED: ACETAMINOPHEN TAB 325 MG TAB PO PRN (12:10)
[2017-12-14] MEDS ORDERED: ONDANSETRON 4 MG/2 ML VIAL IVP PRN (12:10)
[2017-12-14] MEDS ORDERED: MAG HYDROX/AL HYDROX/SIMETH 30 ML CUP PO PRN (12:10)
[2017-12-14] MEDS ORDERED: NALOXONE 0.4 MG/ML 1 ML VIAL IV PRN (12:12)
[2017-12-14] MEDS ORDERED: KETOROLAC 30 MG/ML 1 ML VIAL IVP PRN (12:12)
[2017-12-14] MEDS ORDERED: HYDROmorphone PCA 5 MG/25 ML SYRINGE IV PRN (12:12)
--- NOTE | 2017-12-14 12:18 | P.OP ---
Date of Procedure: 12/14/17 Preoperative Diagnosis: Left renal stones Postoperative Diagnosis: Same, multiple renal tubular stones Procedure(s) Performed: Cystoscopy, placement of occluding balloon catheter, percutaneous nephrostomy ( Dr. Jamison) percutaneous nephrostolithotomy, placement of 10 J nephrostomy Anesthesia: JONY Surgeon: Grant Godoy Pathology: other (Stone) Condition: stable Disposition: PACU Indications for Procedure: The patient is a 62-year-old gentleman with persistent left flank pain. Multiple large volume of kidney stones. They'll quite small. The question is whether this is the cause of his pain. Shockwave lithotripsy be difficult due to the lower pole calyceal component. So with a large volume this question as to how successful this would be. We discussed ureteroscopy versus percutaneous nephrostolithotomy he comes for percutaneous nephrostolithotomy Description of Procedure: The patient is brought to the operating suite. He is given a successful general endotracheal anesthesia on the transport gurney. He's placed in a frog position with a sterile prep and drape. Cystoscopy Foroblique lens and 22- Icelandic sheath identifies a nonobstructing prostate. The left ureteral orifice is identified and intubated with a 5-Icelandic occluding balloon catheter. He's placed in a prone position with care to airways and extremities. Dr. Jamison of radiology performed percutaneous access to a posterior lower pole calyx. I dilate this to 30-Icelandic. Introduced the rigid scope into the collecting system and remove clot and 3 or 4 small stones from the lower pole calyx of. I then looked through the rest the lower pole calyx and do not see any obvious stones. There are some tubular stones that have eroded through the membrane that I removed. I then pass a flexible nephroscope throughout the collecting system carefully identify and intubate each calyx . I do not see any other significant stones . I then do fluoroscopy at the time I do the endoscopy and realized that what we are seeing mostly renal tubular stones. I looked down the ureter and see no remaining stone. I look in the lower pole calyx and remove any remaining debris. I once again look through each calyx and see no more remaining stones. A 10 J nephrostomy tube is placed over the working wire the sheath is removed the nephrostomy tube secured the skin and its position is confirmed. The patient's awake and returned recovery in good condition. He tolerated the procedure well. Blood loss is approximately 100 mL.
--- NOTE | 2017-12-14 13:23 | FL ---
EXAMINATION TYPE: FL Perc Nephrostomy New Access DATE OF EXAM: 12/14/2017 COMPARISON: CT 09/19/2017 HISTORY: Hydronephrosis, ureteral obstruction with staghorn calculus. PROCEDURE: Maximal barrier technique was utilized. The skin overlying the left kidney was localized using fluor oscopy and the overlying skin prepped and draped. Lidocaine used for local anesthesia. Skin brenda wa s made with a scalpel. Access was gained under fluoroscopy, following placement of a ureteral occlus ion balloon by the referring clinician and instillation of air in the renal collecting system with a 21-gauge needle to the lower pole of the left kidney. A suitable posterior calyx was chosen. A 0.0 18 inch wire was advanced. The access site was dilated and subsequently a sheath was advanced into t he renal pelvis following dilation with balloon along the tract. Urine returned in the hub of the cat heter. The patient underwent nephrolithotomy by the referring clinician. The patient remained in st able condition without complication. The patient was discharged to observation. IMPRESSION: STATUS POST NEPHROSTOMY PLACEMENT FOR NEPHROLITHOTOMY WITH FLUOROSCOPIC GUIDANCE. THIS PROCEDURE PER FORMED BY THE UNDERSIGNED.
[2017-12-14] MEDS: DEXTROSE 5%-0.45% NACL 1,000 ML IV SCH ×2 (14:19→21:39)
[2017-12-14 17:33] VITALS: RESP 16
[2017-12-14] MEDS ORDERED: ATORVASTATIN 10 MG TAB PO SCH (21:00)
[2017-12-14] MEDS: FLECAINIDE 50 MG TAB PO SCH (21:39)
--- NOTE | 2017-12-15 06:38 | P.DS ---
Providers Attending physician: Grant Godoy Primary care physician: [facility] Course: The patient was brought into the hospital 12/14/2017 for a left percutaneous nephrostolithotomy. The stones were removed. He is also identified to have a lot of renal tubular stones. He did well overnight. His urine is cleared. His vital signs are stable. He'll be discharged home today. A follow-up in the office on Tuesday for nephrostomy tube removal. Pending stone report and metabolic evaluation as to further recommendations. His condition is good. His diet is regular his activities Limited. He resume his home medications. Patient Condition at Discharge: Good Plan - Discharge Summary Discharge Rx Participant: No New Discharge Prescriptions: New HYDROcodone/APAP 5-325MG [Nikolai 5-325] 1 tab PO Q4HR PRN #14 tab PRN Reason: Pain Control No Action Atorvastatin [Lipitor] 10 mg PO HS Apixaban [Eliquis] 5 mg PO BID Losartan [Cozaar] 100 mg PO DAILY #90 tab Spironolactone 50 mg PO DAILY #90 tab Flecainide [Tambocor] 100 mg PO BID Famotidine [Pepcid] 20 mg PO DAILY Metoprolol Tartrate [Lopressor] 50 mg PO HS Discharge Medication List Atorvastatin [Lipitor] 10 mg PO HS 11/04/15 [History] Apixaban [Eliquis] 5 mg PO BID 07/14/16 [History] Losartan [Cozaar] 100 mg PO DAILY #90 tab 10/01/16 [Rx] Spironolactone 50 mg PO DAILY #90 tab 10/01/16 [Rx] Flecainide [Tambocor] 100 mg PO BID 12/06/17 [History] Famotidine [Pepcid] 20 mg PO DAILY 12/14/17 [History] Metoprolol Tartrate [Lopressor] 50 mg PO HS 12/14/17 [History] HYDROcodone/APAP 5-325MG [Nikolai 5-325] 1 tab PO Q4HR PRN #14 tab 12/15/17 [Rx]
[2017-12-15 07:49] VITALS: BP 120/64; PULSE 65; TEMP 97.5
[2017-12-15] MEDS: FLECAINIDE 50 MG TAB PO SCH (08:42)
[2017-12-15] MEDS ORDERED: LOSARTAN 50 MG TAB PO SCH (09:00)
[2017-12-15] MEDS ORDERED: FAMOTIDINE 20 MG TAB PO SCH (09:00)
[2017-12-15] MEDS ORDERED: SPIRONOLACTONE 25 MG TAB PO SCH (09:00)
== END 2017-12-15 13:15 | disposition home or self-care (01) ==
LOC: OR 08:58 → 3SUR 11:57 → OR 12-15 13:15
PROVIDERS: ATTEND Urology
DX: N20.0 Calculus of kidney (principal); Z87.442 Personal history of urinary calculi; I48.91 Unspecified atrial fibrillation; E78.5 Hyperlipidemia, unspecified; K21.9 Gastro-esophageal reflux disease without esophagitis; M19.90 Unspecified osteoarthritis, unspecified site; G47.33 Obstructive sleep apnea (adult) (pediatric); Z80.0 Family history of malignant neoplasm of digestive organs; Z80.6 Family history of leukemia; Z87.891 Personal history of nicotine dependence; Z79.01 Long term (current) use of anticoagulants; Z79.899 Other long term (current) drug therapy
CPT/HCPCS: 50432; 74018; 80048; 82365; 85025; 86850; 86900; 86901

== ENCOUNTER 2018-10-11 06:56 | Day surgery (SDC) | payer BC, MEDICAID ==
[2018-10-09 11:34] VITALS: BMI 30.6
[~2018-10-11 06:56] MED LIST changes: -HYDROmorphone 0.5 MG/0.5 ML SYRINGE IVP PRN; +LACTATED RINGERS 1,000 ML IV SCH; +LIDOCAINE 1% 20 ML VIAL (10MG/ML) FOR IV START INTRADERMA PRN; -MORPHINE SULFATE 2 MG/ML SYRINGE IV PRN; -ceFAZolin IN SWFI 2 GM/20 ML SYRINGE IVP ONE
[2018-10-11 07:12] VITALS: RESP 18; TEMP 97.5
[2018-10-11] MEDS ORDERED: LACTATED RINGERS 1,000 ML IV ONE ×2 (07:15)
[2018-10-11] MEDS ORDERED: PROPOFOL 10 MG/ML 20 ML VIAL IV ONE (07:40)
--- NOTE | 2018-10-11 07:49 | P.GSHP ---
History of Present Illness H&P Date: 10/11/18 Chief Complaint: History history of colonic Polyps This is a 63-year-old male who presents today for colonoscopy. Patient has history of colon polyps. Patient had a previous bowel resection. Past Medical History Past Medical History: Atrial Fibrillation, Chest Pain / Angina, GERD/Reflux, Hyperlipidemia, Hypertension, Osteoarthritis (OA), Prostate Disorder, Sleep Apnea/CPAP/BIPAP Additional Past Medical History / Comment(s): Large benign colon polyp w/ bowel resection. Nephrolithiasis X3. Stomach Ulcer yrs ago. "CP FOR YEARS." MUSCLE CRAMPS OCC. SL BPH. HX Kidney stones. USES CPAP. History of Any Multi-Drug Resistant Organisms: None Reported Past Surgical History: Bowel Resection, Cardiac Ablation, Cholecystectomy, Ear Surgery, Hernia Repair, Orthopedic Surgery Additional Past Surgical History / Comment(s): 08/05/16 CVN. Low anterior resection D/T. Rt knee arthroscopy. Repair hiatal hernia, arnol inguinal hernias. Benign tumor removed from lt breast, Rt inner ear surgery, colonoscopy. Procedures for kidney stones. Past Anesthesia/Blood Transfusion Reactions: No Reported Reaction Smoking Status: Former smoker - Past Family History Brother(s) Family Medical History: Cancer Additional Family Medical History / Comment(s): Patient has 4 brothers. One has from leukemia, one as an infant from SIDS. One brother that is alive his colon cancer. Patient does not have any sisters. Father Family Medical History: Dementia Additional Family Medical History / Comment(s): Father is 87 yrs old history of hypertension and ear problems. Mother Family Medical History: Cancer Additional Family Medical History / Comment(s): Mother is 85 yrs old. She has had a fractured hip. Throat CA. Daughter(s) Additional Family Medical History / Comment(s): Patient has 2 daughters and 1 son with no major medical problems. Medications and Allergies Home Medications Medication Instructions Recorded Confirmed Type Atorvastatin [Lipitor] 10 mg PO HS 11/04/15 10/09/18 History Losartan [Cozaar] 100 mg PO DAILY #90 tab 10/01/16 10/09/18 Rx Spironolactone 50 mg PO DAILY #90 tab 10/01/16 10/09/18 Rx Flecainide [Tambocor] 100 mg PO BID 12/06/17 10/09/18 History Metoprolol Tartrate [Lopressor] 50 mg PO HS 12/14/17 10/09/18 History Apixaban [Eliquis] 5 mg PO BID 10/09/18 10/09/18 History Allergies Allergy/AdvReac Type Severity Reaction Status Date / Time No Known Allergies Allergy Verified 10/09/18 11:15 Surgical - Exam Vital Signs Temp Pulse Resp BP Pulse Ox 97.5 F L 67 18 126/81 98 10/11/18 07:10 10/11/18 07:10 10/11/18 07:10 10/11/18 07:10 10/11/18 07:10 - General well developed, well nourished, no distress - Eyes PERRL - ENT normal pinna - Neck no masses - Respiratory normal expansion - Cardiovascular Rhythm: regular - Abdomen Abdomen: soft, non tender Assessment and Plan Assessment: History of colon polyps. We'll perform colonoscopy
--- NOTE | 2018-10-11 07:58 | P.OP ---
Date of Procedure: 10/11/18 Preoperative Diagnosis: History of colonic Polyps Postoperative Diagnosis: Normal colonoscopy status sigmoid colectomy Procedure(s) Performed: Colonoscopy Anesthesia: MAC Surgeon: Les Magallanes Pathology: none sent Condition: stable Disposition: PACU Description of Procedure: The patient's placed on the endoscopy table in the lateral position. He received IV sedation. The his rectal exam is performed which revealed no abnormalities. The prostate was symmetric without nodules. The flexible colono scope was then placed patient anus passed throughout the entire colon. The ileocecal valve was visualized. The cecum, ascending and transverse colon appeared normal. Descending colon was visualized. There was no abnormalities. The patient a previous sigmoid clipped. The colorectal anastomosis visualized. This appeared normal. Scope was then brought back the rectum and this was normal. Scope withdrawn the patient.
[2018-10-11 08:36] VITALS: BP 125/85; PULSE 66
== END 2018-10-11 08:45 | disposition home or self-care (01) ==
LOC: ORWHC2ENDO 06:56
PROVIDERS: ATTEND Surgery
DX: Z86.010 Personal history of colon polyps (principal); E78.5 Hyperlipidemia, unspecified; I10 Essential (primary) hypertension; I48.91 Unspecified atrial fibrillation; K21.9 Gastro-esophageal reflux disease without esophagitis; K44.9 Diaphragmatic hernia without obstruction or gangrene; M19.90 Unspecified osteoarthritis, unspecified site; N40.0 Benign prostatic hyperplasia without lower urinary tract symptoms; Z79.01 Long term (current) use of anticoagulants; Z87.19 Personal history of other diseases of the digestive system; Z87.891 Personal history of nicotine dependence; Z90.49 Acquired absence of other specified parts of digestive tract
CPT/HCPCS: 45378; J2704

== ENCOUNTER → 2019-09-19 | Outpatient (CLI) | payer MEDICARE ==
[2019-09-19 09:47] LABS: African American GFR (CKD) >90 (>60 ml/min/1.73 sqM); Blood Urea Nitrogen 18 mg/dL (9-20); Non-African American GFR(CKD) >90 (>60 ml/min/1.73 sqM)
--- NOTE | 2019-09-19 11:55 | CT ---
EXAMINATION TYPE: CT abdomen pelvis wo/w con DATE OF EXAM: 09/19/2019 COMPARISON: CT urogram September 19, 2017. HISTORY: Generalized pain for [address] DLP: 3059.6 mGycm, Automated Exposure Control for Dose Reduction was Utilized. CONTRAST: CT scan of the abdomen and pelvis is performed with oral and without and with IV Contrast, patient in jected with 100 mL of Isovue 300. FINDINGS: LUNG BASES: No significant abnormality is appreciated. LIVER/GB: Cholecystectomy clips are redemonstrated. PANCREAS: No significant abnormality is seen. SPLEEN: No significant abnormality is seen. ADRENALS: No significant abnormality is seen. KIDNEYS:. Redemonstration of multiple bilateral renal calculi appearing size and shape. Roughly 10-15 calculi bilaterally remain present. Largest calculus left kidney upper pole level measures 13 mm neeru g axis axial image 35 and largest kidney centrally right kidney measures 9 mm long axis axial image 4 0. There is symmetric cortical medullary uptake and excretion from both kidneys with occasional tiny subcentimeter hypodense lesion too small to further characterize presumed benign. No hydronephrosis o r obstructing ureteral calculi bilaterally. No intraluminal calculus and bladder. Few scattered pelvi c phleboliths. BOWEL: Oral contrast reaches level of cecum. No suspicious small or large bowel dilatation. Normal co ntrast-filled appendix extends inferiorly from cecum. Surgical suture sigmoid rectal junction coronal image 90 are redemonstrated. Interval Ga fundoplication surgery with sutures at the diaphragmati c hiatus. No recurrent or residual hernia. PROSTATE/SEMINAL VESICLES: No gross abnormality seen. LYMPH NODES: No greater than 1cm abdominal or pelvic lymph nodes are appreciated. OSSEOUS STRUCTURES: Moderate axial joint space loss both hips redemonstrated. OTHER: Mild calcified plaque of the abdominal aorta extends into branch vessels with slight ectasia b ut no greater than 3 cm aneurysmal change. IMPRESSION: No significant new or acute finding is seen to account for patient's clinical symptoms. Multiple bilateral nonobstructing renal calculi redemonstrated.
== END | disposition home or self-care (01) ==
LOC: RADCTMAIN 07:54
PROVIDERS: ATTEND Internal Medicine Geriatric Medicine
DX: N20.0 Calculus of kidney (principal)
CPT/HCPCS: 82565; 84520; 74178; 36415; Q9967

== ENCOUNTER 2020-01-03 10:03 | Day surgery (SDC) | payer MEDICARE ==
[2020-01-01 14:35] VITALS: BMI 31.2
[~2020-01-03 10:03] MED LIST changes: +LIDOCAINE 1% (10MG/ML) FOR IV START INTRADERMA PRN; -LIDOCAINE 1% 20 ML VIAL (10MG/ML) FOR IV START INTRADERMA PRN
[2020-01-03 10:18] VITALS: RESP 16
[2020-01-03] MEDS ORDERED: PROPOFOL 10 MG/ML 20 ML VIAL IV ONE (10:31)
--- NOTE | 2020-01-03 10:32 | P.GSHP ---
History of Present Illness H&P Date: 01/03/20 Chief Complaint: GERD This a 64-year-old male presents today for EGD. He's had issues with GERD. Past Medical History Past Medical History: Atrial Fibrillation, Cancer, Chest Pain / Angina, GERD/Reflux, Hyperlipidemia, Hypertension, Osteoarthritis (OA), Prostate Disorder, Sleep Apnea/CPAP/BIPAP Additional Past Medical History / Comment(s): Hx Large benign colon polyp w/ bowel resection. Nephrolithiasis X3. Stomach Ulcer yrs ago., MUSCLE CRAMPS LEGS ., BPH. , USES CPAP., SKIN CANCER., STATES FEELS LIKE PHLEGM IN HIS THROAT CAUSING DIFFICULTY BREATHING-HAS TO DRINK LOTS OF WATER. History of Any Multi-Drug Resistant Organisms: None Reported Past Surgical History: Bowel Resection, Cardiac Ablation, Cholecystectomy, Ear Surgery, Hernia Repair, Orthopedic Surgery Additional Past Surgical History / Comment(s): 08/05/16 BOWEL RESECTION., Rt knee arthroscopy. Repair hiatal hernia, arnol inguinal hernias. Benign tumor lt breast, Rt inner ear surgery, colonoscopy. Procedures for kidney stones., EGD Past Anesthesia/Blood Transfusion Reactions: No Reported Reaction Past Psychological History: No Psychological Hx Reported Additional Psychological History / Comment(s): . Smoking Status: Former smoker Past Alcohol Use History: None Reported Additional Past Alcohol Use History / Comment(s): Smoker of up to 2 ppd for 30 years, quit 1998. He does have history of alcohol abuse, no ALCOHOL 10 YRS. years. Past Drug Use History: Marijuana Additional Drug Use History / Comment(s): Occasionally smokes marijuana - Past Family History Brother(s) Family Medical History: Cancer Additional Family Medical History / Comment(s): Patient has 4 brothers. One has from leukemia, one as an infant from SIDS. One brother that is alive his colon cancer. . Father Family Medical History: Dementia, Hypertension Additional Family Medical History / Comment(s): . Mother Family Medical History: Cancer Additional Family Medical History / Comment(s): Throat CA. Daughter(s) Family Medical History: No Reported History Additional Family Medical History / Comment(s): . Medications and Allergies Home Medications Medication Instructions Recorded Confirmed Type Atorvastatin [Lipitor] 10 mg PO HS 11/04/15 01/03/20 History Losartan [Cozaar] 100 mg PO DAILY #90 tab 10/01/16 01/03/20 Rx Apixaban [Eliquis] 5 mg PO BID 10/09/18 01/03/20 History Cetirizine HCl [Zyrtec] 10 mg PO DAILY 01/01/20 01/03/20 History Famotidine 20 mg PO DAILY 01/01/20 01/03/20 History Metoprolol 50 mg PO HS 01/01/20 01/03/20 History Montelukast [Singulair] 10 mg PO HS 01/01/20 01/03/20 History Pantoprazole [Protonix] 40 mg PO DAILY 01/01/20 01/03/20 History Spironolactone 25 mg PO DAILY 01/01/20 01/03/20 History amLODIPine [Norvasc] 5 mg PO DAILY 01/01/20 01/03/20 History Allergies Allergy/AdvReac Type Severity Reaction Status Date / Time No Known Allergies Allergy Verified 01/03/20 10:11 Surgical - Exam Vital Signs Resp BP Pulse Ox 16 132/68 98 01/03/20 10:15 01/03/20 10:15 01/03/20 10:15 - General well developed, well nourished, no distress - Eyes PERRL - ENT normal pinna - Neck no masses - Respiratory normal expansion - Cardiovascular Rhythm: regular - Abdomen Abdomen: soft, non tender Assessment and Plan Assessment: GERD. We'll perform EGD
--- NOTE | 2020-01-03 10:39 | P.OP ---
Date of Procedure: 01/03/20 Preoperative Diagnosis: GERD Postoperative Diagnosis: Antral gastritis Procedure(s) Performed: EGD Anesthesia: MAC Surgeon: Les Magallanes Pathology: other (Antral) Condition: stable Disposition: PACU Description of Procedure: Patient's placed on the endoscopy table in the lateral position. He received IV sedation. The gastroscope was oropharynx passed in the esophagus and stomach. Scope was placed through the pylorus. The first and second portion of the duodenum appeared normal. Scope was then brought back the antrum and this appeared moderately inflamed. A biopsies performed. Scope was unretroflexed and remainder stomach appeared normal. The GE junction was at 40 cm. There was no evidence of any hiatal hernia. The distal esophagus appeared normal. The proximal esophagus appeared normal. Scope withdrawn patient.
[2020-01-03 11:19] VITALS: BP 122/73; PULSE 56
== END 2020-01-03 11:19 | disposition home or self-care (01) ==
LOC: ORWHC2ENDO 10:03
PROVIDERS: ATTEND Surgery
DX: K29.70 Gastritis, unspecified, without bleeding (principal); K31.9 Disease of stomach and duodenum, unspecified; K21.9 Gastro-esophageal reflux disease without esophagitis; I48.91 Unspecified atrial fibrillation; Z85.828 Personal history of other malignant neoplasm of skin; E78.5 Hyperlipidemia, unspecified; I10 Essential (primary) hypertension; M19.90 Unspecified osteoarthritis, unspecified site; N40.0 Benign prostatic hyperplasia without lower urinary tract symptoms; G47.33 Obstructive sleep apnea (adult) (pediatric); Z99.89 Dependence on other enabling machines and devices; Z86.010 Personal history of colon polyps; Z90.49 Acquired absence of other specified parts of digestive tract; Z87.442 Personal history of urinary calculi; Z87.11 Personal history of peptic ulcer disease; Z87.39 Personal history of other diseases of the musculoskeletal system and connective tissue; Z98.890 Other specified postprocedural states; Z87.891 Personal history of nicotine dependence; Z79.01 Long term (current) use of anticoagulants; Z79.899 Other long term (current) drug therapy; Z80.6 Family history of leukemia; Z80.0 Family history of malignant neoplasm of digestive organs; Z84.89 Family history of other specified conditions; Z81.8 Family history of other mental and behavioral disorders; Z82.49 Family history of ischemic heart disease and other diseases of the circulatory system; Z80.8 Family history of malignant neoplasm of other organs or systems
CPT/HCPCS: 88305; 43239; J2704

== ENCOUNTER 2020-06-16 10:52 | Day surgery (SDC) | payer MEDICARE ==
[2020-06-10 11:00] VITALS: BMI 31.2
[~2020-06-16 10:52] MED LIST changes: -LIDOCAINE 1% (10MG/ML) FOR IV START INTRADERMA PRN; +SODIUM CHLORIDE 0.9% 1,000 ML IV SCH
[2020-06-16] MEDS ORDERED: SODIUM CHLORIDE 0.9% 1,000 ML IV ONE (11:08)
[2020-06-16 12:46] LABS: Basophils # (A) 0.1 k/uL (0-0.2); Basophils % (A) 1 %; Eosinophils # (A) 0.2 k/uL (0-0.7); Eosinophils % (A) 2 %; HCT 46.2 % (39.0-53.0); HGB 16.3 gm/dL (13.0-17.5); Lymphocytes # (A) 1.7 k/uL (1.0-4.8); Lymphocytes % (A) 20 %; MCHC 35.2 g/dL (31.0-37.0); Mean Platelet Volume 7.4; Monocytes # (A) 0.6 k/uL (0-1.0); Monocytes % (A) 7 %; Neutrophils # (A) 5.8 k/uL (1.3-7.7); Neutrophils % (A) 69 %; Platelet Count 179 k/uL (150-450); RBC 5.25 m/uL (4.30-5.90); RDW 12.5 % (11.5-15.5); WBC 8.5 k/uL (3.8-10.6)
[2020-06-16 12:55] LABS: Calcium 9.2 mg/dL (8.4-10.2)
[2020-06-16] MEDS ORDERED: MIDAZOLAM 2 MG/2 ML VIAL ONE (15:30)
[2020-06-16] MEDS ORDERED: LIDOCAINE 1% INJ 10MG/ML (20 ML MDV) ONE ×2 (15:30→15:31)
[2020-06-16] MEDS ORDERED: PROPOFOL 10 MG/ML 20 ML VIAL IV ONE (15:30)
[2020-06-16] MEDS ORDERED: SUCCINYLCHOLINE CHLORIDE VIAL 200 MG/10 ML VIAL IV ONE (15:30)
[2020-06-16] MEDS ORDERED: GLYCOPYRROLATE 0.2 MG/ML 2 ML VIAL ONE (15:30)
[2020-06-16] MEDS ORDERED: ROCURONIUM 10 MG/ML (10 ML VIAL) IV ONE (15:30)
[2020-06-16] MEDS ORDERED: HEPARIN SODIUM,PORCINE 10,000 UNIT/ML 1 ML VIAL ONE (15:30)
[2020-06-16] MEDS ORDERED: HEPARIN SODIUM,PORCINE 5,000 UNIT/ML 1 ML VIAL ONE (15:30)
[2020-06-16] MEDS ORDERED: fentaNYL (PF) 50 MCG/ML 2 ML AMP ONE (15:30)
[2020-06-16] MEDS ORDERED: ISOPROTERENOL 250 MCG/1.25 ML SYR IV ONE (15:30)
[2020-06-16] MEDS ORDERED: NEOSTIGMINE 1 MG/ML 10 ML VIAL ONE (15:30)
--- NOTE | 2020-06-16 15:43 | P.HPCAR ---
History of Present Illness This is Dr. Chamberlain dictating an H/P on this patient The patient was interviewed and examined IMPRESSION / ASSESSMENT: History of persistent atrial fibrillation History of cryoablation 2017 Recurrent palpitations of recent onset Mild cardio myopathy left ventricular ejection fraction 50%, no ischemia on stress testing Documented episodes of A. fib with RVR on twelve-lead EKG as well as an event monitoring History of nonsustained ventricular tachycardia Sick Sinus Syndrome PLAN: Proceed with EP study and radiofrequency ablation for atrial fibrillation Continue anticoagulation HPI Recurrent episodes of palpitations No dizziness or syncopal no chest pain no undue shortness of breath Patient denies any fever chills cough expectoration or any GI symptoms ROS: No fever chills or rigors, no cough, phlegm or expectoration, no nausea, vomiting or diarrhea, no hematuria, dysuria, no musculoskeletal complaints, no strokes or seizures, no skin lesions. EXAMINATION: Afebrile 98.1F, blood pressure 146/80 mmHg Breath sounds are clear no rhonchi no crackles Normal heart sounds normal S1 normal S2 no murmurs or gallops or rub No JVD No lower extremity edema REVIEW OF LABS, ECG & MEDICAL DATA Hemoglobin 16.3, platelet count 179,000 Sodium 140, potassium 4.0, BUN 22 and creatinine 1.0 Physical Exam Vitals: Vital Signs Temp Pulse Resp BP Pulse Ox 06/16/20 11:08 98.1 F 72 6 L 146/80 100 Intake and Output 06/16/20 06/16/20 06/16/20 06:59 14:59 22:59 Intake Total 20 0 Balance 20 0 Intake: IV 20 0 Other: Weight 113.2 kg Past Medical History Past Medical History: Atrial Fibrillation, Cancer, Chest Pain / Angina, GERD/Reflux, Hyperlipidemia, Hypertension, Osteoarthritis (OA), Prostate Disorder, Sleep Apnea/CPAP/BIPAP Additional Past Medical History / Comment(s): Hx Large benign colon polyp w/ bowel resection. Nephrolithiasis X3. Stomach Ulcer yrs ago., MUSCLE CRAMPS LEGS ., BPH. , USES CPAP., SKIN CANCER., STATES FEELS LIKE PHLEGM IN HIS THROAT CAUSING DIFFICULTY BREATHING-HAS TO DRINK LOTS OF WATER. History of Any Multi-Drug Resistant Organisms: None Reported Past Surgical History: Bowel Resection, Cardiac Ablation, Cholecystectomy, Ear Surgery, Hernia Repair, Orthopedic Surgery Additional Past Surgical History / Comment(s): 08/05/16 BOWEL RESECTION., Rt knee arthroscopy. Repair hiatal hernia, arnol inguinal hernias. Benign tumor lt breast, Rt inner ear surgery, colonoscopy. Procedures for kidney stones., EGD Past Anesthesia/Blood Transfusion Reactions: No Reported Reaction Smoking Status: Former smoker - Past Family History Brother(s) Family Medical History: Cancer Additional Family Medical History / Comment(s): Patient has 4 brothers. One has from leukemia, one as an infant from SIDS. One brother that is alive his colon cancer. . Father Family Medical History: Dementia, Hypertension Additional Family Medical History / Comment(s): . Mother Family Medical History: Cancer Additional Family Medical History / Comment(s): Throat CA. Daughter(s) Family Medical History: No Reported History Additional Family Medical History / Comment(s): . Physical Examination Vital Signs Temp Pulse Resp BP Pulse Ox 06/16/20 11:08 98.1 F 72 6 L 146/80 100 Intake and Output 06/16/20 06/16/20 06/16/20 06:59 14:59 22:59 Intake Total 20 0 Balance 20 0 Intake: IV 20 0 Other: Weight 113.2 kg Results 06/16/20 11:10 06/16/20 11:10 CBC 06/16/20 Range/Units 11:10 WBC 8.5 (3.8-10.6) k/uL RBC 5.25 (4.30-5.90) m/uL Hgb 16.3 (13.0-17.5) gm/dL Hct 46.2 (39.0-53.0) % Plt Count 179 (150-450) k/uL Comprehensive Metabolic Panel 06/16/20 Range/Units 11:10 Sodium 140 (137-145) mmol/L Potassium 4.0 (3.5-5.1) mmol/L Chloride 104 (98-107) mmol/L Carbon Dioxide 27 (22-30) mmol/L BUN 22 H (9-20) mg/dL Creatinine 1.02 (0.66-1.25) mg/dL Glucose 99 (74-99) mg/dL Calcium 9.2 (8.4-10.2) mg/dL Current Medications Generic Name Dose Route Start Last Admin Trade Name Freq PRN Reason Stop Dose Admin Lactated Ringer's 1,000 mls @ 20 mls/hr 06/16/20 06:03 Lactated Ringers IV .Q24H KAREN Sodium Chloride 1,000 mls @ 50 mls/hr 06/16/20 06:03 Saline 0.9% IV .Q20H KAREN Intake and Output 06/16/20 06/16/20 06/16/20 06:59 14:59 22:59 Intake Total 20 0 Balance 20 0 Intake: IV 20 0 Other: Weight 113.2 kg Patient Weight 06/17/20 06:59 Weight 113.2 kg 06/16/20 11:10 06/16/20 11:10
[2020-06-16] MEDS ORDERED: HEPARIN SOD,PORK IN 0.45% NACL 25,000 UNIT in 0.45% NACL 1 250ML.BAG IV ONE (16:01)
[2020-06-16] MEDS ORDERED: LIDOCAINE 1% INJ 10MG/ML (20 ML MDV) SQ ONE (16:01)
[2020-06-16] MEDS ORDERED: HEPARIN SODIUM (1,000 UNIT/ML) 1,000 UNIT in SODIUM CHLORIDE 0.9% 1,000 ML IRRIGATION ONE (17:00)
[2020-06-16] MEDS ORDERED: LACTATED RINGERS 1,000 ML IV ONE (19:19)
[2020-06-16] MEDS ORDERED: HYDROcodone/APAP 5-325MG 1 EACH TAB PO PRN (19:30)
[2020-06-16] MEDS ORDERED: ACETAMINOPHEN TAB 325 MG TAB PO PRN (19:30)
--- NOTE | 2020-06-16 19:34 | P.PRLE ---
RE: Mk Hernández Dear luis Terrazas underwent a diagnostic EP study and a difference ablation for atrial fibrillation. There was the recovery of pulmonary vein potentials within the r ight superior pulmonary vein. All of the pulmonary veins were quiescent In addition the isabell of the right-sided veins was active secondary to a likely epicardial source which is also successfully ablated. He will continue his cardiac medications including ELIQUIS and I'll see him again in about a week's time I would recommend weight reduction especially waist size reduction and minimizing caffeine intake and alcohol consumption Thank you for entrusting me with the care of the patient Warm regards Sincerely Zafar Chamberlain
[2020-06-16] MEDS: ACETAMINOPHEN IV (For NPO) 1,000 MG in EMPTY BAG 1 BAG IVPB ONE ×2 (20:05→20:25)
[2020-06-16] MEDS ORDERED: MONTELUKAST 10 MG TAB PO SCH (21:00)
[2020-06-16] MEDS ORDERED: METOPROLOL SUCCINATE (ER) 50 MG TAB.ER.24H PO SCH (21:00)
[2020-06-16] MEDS ORDERED: ATORVASTATIN 10 MG TAB PO SCH (21:00)
--- NOTE | 2020-06-16 21:06 | CE ---
CARDIAC ELECTROPHYSIOLOGY REPORT Result Successful wide [place] antral isolation of the lites. Pulmonary vein which was large. Reconnection was noted Atrial activity noted in the isabell between the right-sided veins, epicardial source, successful ablation, focal ablation Focal ablation anterior isabell along the ridge between left-sided veins and left atrial appendage. Atrial tachycardia was induced mechanical stimulation at the site He is a 64-year-old male patient who has persistent atrial fibrillation. He underwent a cryoablation of the pulmonary veins in 2017 and did well until recently. He started experiencing palpitations and he has had documented atrial fibrillation. Since he has sick sinus syndrome, antiarrhythmic drug therapy was withheld and the dose of metoprolol was reduced further and he is brought in for diagnostic EP study and radiofrequency ablation for atrial fibrillation. Patient was brought to the EP lab in a fasting state. Written informed consent was obtained prior to the procedure. The procedure was performed under general anesthesia. Temperature monitoring of the esophagus was performed. Venous sheaths were placed in the right and left femoral veins and via these diagnostic mapping ablation catheters and intracardiac echo catheter were placed. The sinus cycle length was 840 milliseconds, KS interval 157 milliseconds, QRS 110 milliseconds, QT interval 391 milliseconds. RA pressure 10 x 10 4/5 4/7 and LA pressure 18 4/4/11 mmHg. Intracardiac echo revealed normal LV and RV size and function, normal pericardium and normal left atrial appendage without any intracardiac mass or thrombus. The coronary sinus catheter was placed. The patient was in sinus rhythm at the start of the study. Intracardiac echocardiography was performed. Anterior atrial septum was identified. Left atrium and the pulmonary veins are identified. 3D anatomic mapping was performed. Left and right transseptal catheterization was performed. The sheath was placed and mapping ablation catheter was placed. Voltage mapping of the left atrium was performed. The left superior, left inferior and right inferior veins were completely isolated with the right superior vein was a very large vein and was isolated only beyond the ostium. However, this vein had a very large antrum. Complex fractionated electrograms were noted along the septum and the antrum of the right superior vein anteriorly. Wide [place]oksack antral isolation was performed. Posteriorly the cryoablation lesion set was still intact. However, anteriorly there was recovery of the cryoablation lesions. However, at this time, a very large wide [place] antral isolation was performed. Despite a complete intact line without any slow conduction, which was proven with repeat voltage mapping and activation mapping during atrial pacing, there was an area of pulmonary vein potentials within the isabell. The RF line of block was very carefully mapped and there was no leak noted along the line. This seemed to be an epicardial focus with entrance into the right side isabell and focal RF ablation was then applied with elimination termination of the PVCs and complete exit block was noted thereafter. The RF line was reinterrogated once again and was found to be intact. Good power and good temperature up to 40 frank had been used. During voltage mapping, atrial tachycardia was mechanically induced from the ridge/anterior isabell of the left-sided veins. RF ablation was performed at this site between the 2 veins anteriorly along the ridge at 40 frank. The patient had left-sided esophagus and briefly the temperature alarm did go up and RF ablation was stopped. However, we were ablating along the anterior margin and there was no posterior projection of the catheter tip. This was very carefully sought. Following that, a detailed EP study was performed. Sinus node recovery times at 600, milliseconds was 1318 milliseconds. Corresponding corrected sinus node recovery time was mildly prolonged. AV node Wenckebach block 360 milliseconds. Atrial extra stimulation was performed after double extra stimuli. No atrial fibrillation was induced. Burst stimulation was performed from 400 millisecond down to 200 milliseconds and a pacing cycle length 200 milliseconds. Very brief atrial fibrillation/atrial tachycardia was induced, lasting for 5-10 seconds with spontaneous termination. High-dose Isuprel was also employed and pacing was performed. No atrial fibrillation was induced. AV node Wenckebach block on Isuprel was 230 milliseconds. At this point, all catheters were removed. Heparin was reversed and the VA sheaths were removed. Hemostasis was assured. RESULT: Diagnostic EP study revealing recovery of the right superior pulmonary vein. This was a very large vein and very wide [place] antral isolation was performed. An epicardial focus was noted in the isabell of the right-sided veins. The RF ablation line was interrogated very carefully and was found to be intact. The right inferior pulmonary vein was completely isolated from the prior ablation lesions in 2017. RF ablation was performed along the anterior ridge between the left atrial appendage and left-sided veins. Short-segment was ablated as mechanical stimulation during mapping resulted in induction of atrial tachycardia at this site. The patient tolerated the procedure well without any acute complications. PLAN: Continue cardiac medications. Continue anticoagulation with Elimono. Procedures performed Diagnostic EP study with attempted arrhythmia induction CS pacing and recording Drug infusion Transseptal catheterization Intracardiac echo 3-D mapping of the left atrium PVI Focal ablation in the right isabell, anterior Focal ablation left anterior isabell MMODL / IJN: [id number] / [facility]
[2020-06-16 21:08] VITALS: RESP 18
[2020-06-16] MEDS: LOSARTAN 50 MG TAB PO SCH (21:39)
[2020-06-16] MEDS: APIXABAN 5 MG TAB PO SCH (23:14)
[2020-06-17] MEDS ORDERED: FUROSEMIDE 40 MG TAB PO STA (07:59)
[2020-06-17] MEDS: APIXABAN 5 MG TAB PO SCH (08:16)
[2020-06-17] MEDS: LOSARTAN 50 MG TAB PO SCH (08:16)
--- NOTE | 2020-06-17 08:36 | P.DS ---
Providers Attending physician: Zafar Chamberlain Primary care physician: [facility] Course: Patient is resting comfortably in bed. He denies any symptoms of GERD but a sore throat in the neck. No chest discomfort no pleuritic chest discomfort no shortness of breath no orthopnea On examination few crackles at the bases bilaterally but no rhonchi no JVD No lower extremity edema groin is healed well no hematoma Minimal tenderness right groin without any swelling or bruising Normal heart sounds normal S1 normal S2 no murmurs no gallops no rub Abdomen is soft Blood pressures in the normal range Afebrile 90F pulse rate in the 70s blood pressure 105/64 mmHg Impression Recurrent atrial fibrillation, persistent In 2017 he underwent cryoablation of all 4 pulmonary veins Recurrence of symptoms after 3 years 3-D mapping revealed a very little large right superior pulmonary vein with reconnection Successful wide [place] antral isolation outside the right superior pulmonary vein Focal atrial activity in the isabell of the right-sided veins, epicardial No evidence for slow conduction through the RF line Focal atrial activity with induction of atrial tachycardia in the anterior isabell, left sided veins, in the ridge Extreme left-sided esophagus No posterior wall ablation needed/performed Plan 1 dose of by mouth Lasix this morning Ambulate in the hallways, discharge by 4 PM Continue cardiac medications Continue ELIQUIS Follow-up in the office in 2 weeks Plan - Discharge Summary Discharge Rx Participant: No New Discharge Prescriptions: No Action RX: Atorvastatin [Lipitor] 10 mg PO HS Apixaban [Eliquis] 5 mg PO BID Montelukast [Singulair] 10 mg PO HS RX: Famotidine 20 mg PO DAILY Cetirizine HCl [Zyrtec] 10 mg PO DAILY amLODIPine [Norvasc] 5 mg PO DAILY RX: Spironolactone 25 mg PO DAILY Pantoprazole [Protonix] 40 mg PO DAILY Metoprolol Succinate [Toprol XL] 50 mg PO HS RX: Losartan [Cozaar] 50 mg PO BID Discharge Medication List RX: Atorvastatin [Lipitor] 10 mg PO HS 11/04/15 [History] Apixaban [Eliquis] 5 mg PO BID 10/09/18 [History] Cetirizine HCl [Zyrtec] 10 mg PO DAILY 01/01/20 [History] Montelukast [Singulair] 10 mg PO HS 01/01/20 [History] Pantoprazole [Protonix] 40 mg PO DAILY 01/01/20 [History] RX: Famotidine 20 mg PO DAILY 01/01/20 [History] RX: Spironolactone 25 mg PO DAILY 01/01/20 [History] amLODIPine [Norvasc] 5 mg PO DAILY 01/01/20 [History] Metoprolol Succinate [Toprol XL] 50 mg PO HS 06/10/20 [History] RX: Losartan [Cozaar] 50 mg PO BID 06/10/20 [History]
[2020-06-17] MEDS ORDERED: PANTOPRAZOLE 40 MG TABLET PO SCH (09:00)
[2020-06-17] MEDS ORDERED: SPIRONOLACTONE 25 MG TAB PO SCH (09:00)
[2020-06-17] MEDS ORDERED: amLODIPine 5 MG TAB PO SCH (09:00)
[2020-06-17 15:32] VITALS: BP 123/75; PULSE 72; TEMP 98.7
== END 2020-06-17 16:49 | disposition home or self-care (01) ==
LOC: CATHEP 10:52 → 1SOBS 19:37 → CATHEP 06-17 16:49
PROVIDERS: ATTEND Internal Medicine Clinical Cardiac Electrophysiology
DX: I48.19 Other persistent atrial fibrillation (principal); I47.1 Supraventricular tachycardia; I49.5 Sick sinus syndrome; K21.9 Gastro-esophageal reflux disease without esophagitis; E78.5 Hyperlipidemia, unspecified; I10 Essential (primary) hypertension; M19.90 Unspecified osteoarthritis, unspecified site; N40.0 Benign prostatic hyperplasia without lower urinary tract symptoms; G47.30 Sleep apnea, unspecified; Z99.89 Dependence on other enabling machines and devices; Z85.828 Personal history of other malignant neoplasm of skin; R25.2 Cramp and spasm; Z90.49 Acquired absence of other specified parts of digestive tract; Z98.890 Other specified postprocedural states; Z87.442 Personal history of urinary calculi; Z87.891 Personal history of nicotine dependence; Z80.6 Family history of leukemia; Z80.0 Family history of malignant neoplasm of digestive organs; Z82.49 Family history of ischemic heart disease and other diseases of the circulatory system; I42.9 Cardiomyopathy, unspecified; Z86.010 Personal history of colon polyps; Z79.01 Long term (current) use of anticoagulants; Z79.899 Other long term (current) drug therapy
CPT/HCPCS: 93613; 93623; 93662; 93656; 85347; 80048; 85025; C1769 ×4; C1894; C1730 ×3; C1759; C1893; C1732; J2250; J0330; J1644 ×4; J2710; J2001; J3010; J0131; J2704